=== PATIENT | female | born 1950 ===

== ENCOUNTER → 2018-01-11 | Outpatient (CLI) | payer OTHER ==
--- NOTE | ~2018-01-11 | P ---
[facility] [place] [address] PROCEDURE REPORT Name: RAYMON SINGH Room #: REG [facility] [id number] Admission: 01/11/18 Attend Phys: Sam Fleming Discharge: Date of : 52 Report #: [id number] THIS REPORT FOR: //name// CC: Sam Escoto MD DATE OF SERVICE: 01/11/2018 PROCEDURE PERFORMED: Upper endoscopy with biopsies and esophageal dilation. HISTORY OF PRESENT ILLNESS: The patient is a 67-year-old female with a long history of gastroesophageal reflux disease, has been on several different PPIs in the past. Most effective was Dexilant, but not covered by insurance. She does report intermittent dysphagia. Last upper endoscopy in 2011. She had a hospitalization for chest pain, cardiac workup was all negative. She has most recently been on Prevacid [id number] once a day, but still having intermittent symptoms. She also complains of early satiety, intermittent abdominal pain and bloating. DESCRIPTION OF PROCEDURE: The risks and benefits of the procedure were explained to the patient. Those risks including but not limited to bleeding, perforation, the risk of sedation. She understood these risks and gave informed consent. Sedation was given using propofol per Anesthesia. Next, using a standard [employer] upper endoscope, the scope was placed in the patient's mouth and advanced under direct vision through the esophagus, stomach and into the second portion of the duodenum. The larynx was normal in appearance. The upper and mid esophagus was normal in appearance. In the distal esophagus, a single pink mucosal tongue was noted. Biopsies were obtained to rule out the possibility of Ayala esophagus. Upon entering the stomach, a small hiatal hernia was noted. Multiple gastric polyps were noted. Biopsies were obtained. The antrum was normal. Biopsies were obtained to rule out the possibility of H. pylori. The pylorus was normal and patent. The duodenal bulb, first and second portion were all normal. Biopsies were obtained to rule out the possibility of celiac sprue. The scope was then brought back up into the patient's stomach and a Savary wire was advanced through the scope, leaving this in place as the scope was then withdrawn. Next, with a 48-[place] Savary, dilation of the esophagus was performed without difficulty. The wire and dilator were removed. The scope was reintroduced into the patient's stomach. There was no evidence of mucosal tear after dilation. The scope was then withdrawn and the procedure terminated. The patient tolerated the procedure well. IMPRESSION: 1. 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 2. Small hiatal hernia. 3. Gastric polyps. [address] [address] PROCEDURE REPORT Name: SAMANTHARAYMON Junior Room #: REG Kyara Hannah#: [id number] Admission: 01/11/18 Attend Phys: Sam Fleming Discharge: Date of : 52 Report #: [id number] 4. Otherwise, normal upper endoscopy. RECOMMENDATIONS: 1. Await biopsy results. 2. Observe the patient post-dilation. 3. We discussed several options starting to increase dose of Prevacid. Next, if this is not helpful, consider switch to Protonix or even adding a promotility agent in the future. Also discussed potentially proceeding with an ultrasound of the abdomen to rule out the possibility of cholelithiasis as the patient does have intermittent mid epigastric and right upper quadrant abdominal pain at times. Thank you for allowing me to participate in her care. <ELECTRONICALLY SIGNED> By: Sam Boykin MD 01/13/18 [id number] Sam Boykin MD /nt
== END | disposition home or self-care (01) ==
LOC: GI 07:34
DX: K29.50 Unspecified chronic gastritis without bleeding (principal); K31.7 Polyp of stomach and duodenum; K21.0 Gastro-esophageal reflux disease with esophagitis; K44.9 Diaphragmatic hernia without obstruction or gangrene; I10 Essential (primary) hypertension; E78.00 Pure hypercholesterolemia, unspecified; G47.33 Obstructive sleep apnea (adult) (pediatric); Z87.19 Personal history of other diseases of the digestive system; Z98.890 Other specified postprocedural states; Z90.710 Acquired absence of both cervix and uterus; Z79.899 Other long term (current) drug therapy
CPT/HCPCS: 62110; 62900